=== PATIENT | female | born 1965 | race Caucasian/White ===

== ENCOUNTER 2022-10-30 12:57 | Emergency (ER) | payer SELFPAY ==
[~2022-10-30] VITALS: Ht 160 cm; Wt 63.0 kg
[2022-10-30 13:05] VITALS: BP 131/75
[2022-10-30] MEDS ORDERED: KETOROLAC 30 MG/ML VIAL IM ONE (13:25)
[2022-10-30] MEDS ORDERED: HYDROcodone/APAP 5/325 MG 1 TAB TAB PO ONE (14:15)
[2022-10-30] MEDS ORDERED: IBUP-2213 PO (14:15)
[2022-10-30] MEDS ORDERED: ACET-10509 PO (14:15)
[2022-10-30 14:40] VITALS: BP 137/78
--- NOTE | 2022-10-30 14:40 | NUR ---
Patient discharged with v/s stable. Written and verbal after care instructions given and explained. Patient alert, oriented and verbalized understanding of instructions. with steady gait. All questions addressed prior to discharge. ID band removed. Patient advised to follow up with PMD. Rx of tylenol, ibuprofen given. Patient educated on indication of medication including possible reaction and side effects. Opportunity to ask questions provided and answered.
--- NOTE | 2022-10-30 14:47 | NUR ---
Nikolas humphreys in ED - 10/30/22 at 1449 by DALEFR britni wrap to l knee x 1. + cms.
--- NOTE | 2022-10-30 14:49 | NUR ---
UNABLE TO LOCATE PT TO APPLY GEOVANY WRAP
== END 2022-10-30 14:40 | disposition home or self-care (01) ==
LOC: MED 12:57
DX: S80.02XA Contusion of left knee, initial encounter (principal); W18.30XA Fall on same level, unspecified, initial encounter; Y93.89 Activity, other specified; Y92.89 Other specified places as the place of occurrence of the external cause; Y99.8 Other external cause status
CPT/HCPCS: 73562; 99283